=== PATIENT | female | born 1945 | race Caucasian/White ===

== ENCOUNTER 2020-12-19 22:14 | Inpatient (IN) | payer MEDICARE ==
[~2020-12-19] VITALS: Ht 180.3 cm; Wt 90.3 kg
[2020-12-19 23:46] LABS: HEMOGLOBIN 10.3 gm/dl (12.3-15.3); RED BLOOD COUNT 3.19 M/UL (4.00-5.10); WHITE BLOOD COUNT 9.4 K/UL (4.5-11.0)
[2020-12-20 00:10] LABS: BUN/CREATININE RATIO 9 (0-10)
[2020-12-20] MEDS ORDERED: ZOLOFT50 MG PO (04:08)
[2020-12-20] MEDS ORDERED: OMEPRAZOLE20 MG PO (04:09)
[2020-12-20] MEDS ORDERED: LANTUS100 UNIT/1 SQ (04:09)
[2020-12-20] MEDS ORDERED: AMLODIPINE BESY10 MG PO (04:10)
[2020-12-20] MEDS ORDERED: COREG12.5 MG PO (04:10)
[2020-12-20] MEDS ORDERED: HUMALOG100 UNIT/1 SC (04:10)
[2020-12-21 04:57] LABS: HEMOGLOBIN 9.6 gm/dl (12.3-15.3); RED BLOOD COUNT 2.96 M/UL (4.00-5.10); WHITE BLOOD COUNT 11.3 K/UL (4.5-11.0)
[2020-12-22 03:17] LABS: HEMOGLOBIN 9.7 gm/dl (12.3-15.3); RED BLOOD COUNT 3.03 M/UL (4.00-5.10); WHITE BLOOD COUNT 11.7 K/UL (4.5-11.0)
--- NOTE | 2020-12-23 01:40 | NUR ---
Dr. Vail has ordered a soap suds enema for the pt. at 2315 gave pt a soap suds enema. No fecal impaction noted. Two hours later pt still hasn't had a bowel movement. No more vomiting at this time.
[2020-12-23 03:04] LABS: HEMOGLOBIN 9.5 gm/dl (12.3-15.3); RED BLOOD COUNT 2.92 M/UL (4.00-5.10); WHITE BLOOD COUNT 13.7 K/UL (4.5-11.0)
[2020-12-24 03:19] LABS: HEMOGLOBIN 9.9 gm/dl (12.3-15.3); RED BLOOD COUNT 3.1 M/UL (4.00-5.10); WHITE BLOOD COUNT 12.4 K/UL (4.5-11.0)
[2020-12-25 03:51] LABS: HEMOGLOBIN 10.1 gm/dl (12.3-15.3); RED BLOOD COUNT 3.18 M/UL (4.00-5.10)
[2020-12-25 03:53] LABS: WHITE BLOOD COUNT 15.6 K/UL (4.5-11.0)
[2020-12-26 05:56] LABS: HEMOGLOBIN 10.2 gm/dl (12.3-15.3); RED BLOOD COUNT 3.18 M/UL (4.00-5.10); WHITE BLOOD COUNT 15.4 K/UL (4.5-11.0)
--- NOTE | 2020-12-26 16:18 | NUR ---
NG AND RECTAL TUBE REMOVED THIS AM. PATIENT TOLERATED WELL.
[2020-12-27 06:56] LABS: HEMOGLOBIN 10.7 gm/dl (12.3-15.3); RED BLOOD COUNT 3.34 M/UL (4.00-5.10); WHITE BLOOD COUNT 12.6 K/UL (4.5-11.0)
--- NOTE | 2020-12-27 10:58 | NUR ---
ON 12/23/20 AT APPROX 1430 THE PATIENT WAS UP TO THE CHAIR AND REQUESTED TO GO BACK TO BED, HANS GALLEGO WAS IN THE ROOM ASSISTING WITH THE TRANSFER, PATIENT REPORTED FEELING DIZZY I TOOK HER BLOOD PRESSURE IT WAS 99/39 SITTING 68 HEART RATE AND O2 WAS 98% ON 2 LITERS, AFTER STANDING PATIENTS BLOOD PRESSURE WAS 120/46 AND HEART RATE WAS 66 BPM, THE PATIENT THEN REPORTED AGAIN SHE WAS FEELING DIZZY SO I INSTRUCTED HER TO SIT BACK DOWN AND AT THAT TIME THE PATIENT PASSED OUT BUT WAS EASILY WOKE BACK UP. ONCE SITTING BACK DOWN I CALLED A SALES REPRESENT[employer] FOR EXTRA ASSISTANCE, BLOOD PRESSURE AFTERWARDS WAS 108/53 HEART RATE WAS 73 BPM AND O2 WAS 97 % ON 2 LITERS, DR. MART WAS AT BEDSIDE AND PATIENT WAS SAFELY PUT BACK TO BED. PATIENT AT THAT TIME DID NOT REPORT FEELING DIZZY ANYMORE, BLOOD PRESSURE WAS 131/62 AND HEART RATE WAS 76 BPM AND O2 WAS 98% ON 2 LITERS.
[2020-12-28 03:35] LABS: HEMOGLOBIN 9.4 gm/dl (12.3-15.3)
[2020-12-28 03:39] LABS: RED BLOOD COUNT 2.95 M/UL (4.00-5.10)
[2020-12-28] MEDS ORDERED: CARVEDILOL3.125 MG PO (17:14)
[2020-12-28] MEDS ORDERED: STIMULANT LAXA1 EACH PO ×2 (17:14)
[2020-12-28] MEDS ORDERED: ELIQUIS 2.5 MG2.5 MG PO (17:14)
[2020-12-29 04:45] LABS: HEMOGLOBIN 9.8 gm/dl (12.3-15.3); RED BLOOD COUNT 3.02 M/UL (4.00-5.10); WHITE BLOOD COUNT 10.4 K/UL (4.5-11.0)
[2020-12-29] MEDS ORDERED: HYDROCODON-ACE1 EAC4 PO (10:41)
== END 2020-12-29 13:15 | disposition home or self-care (01) | DRG 521 ==
LOC: ER1 22:14 → M/S 12-20 02:21 → CDU 12-20 02:21 → M/S 12-20 03:55
PROVIDERS: Family Medicine; Internal Medicine; Internal Medicine Nephrology; Orthopaedic Surgery; Physician Assistant; ADMIT Internal Medicine
PROC: 0SRS0J9 Replacement of Left Hip Joint, Femoral Surface with Synthetic Substitute, Cemented, Open Approach (ICD-10-PCS; principal; 2020-12-20 11:36)
PROC: 5A1D70Z Performance of Urinary Filtration, Intermittent, Less than 6 Hours Per Day (ICD-10-PCS; 2020-12-22)
PROC: 5A1D70Z Performance of Urinary Filtration, Intermittent, Less than 6 Hours Per Day (ICD-10-PCS; 2020-12-23)
PROC: 5A1D70Z Performance of Urinary Filtration, Intermittent, Less than 6 Hours Per Day (ICD-10-PCS; 2020-12-25)
PROC: 0D9670Z Drainage of Stomach with Drainage Device, Via Natural or Artificial Opening (ICD-10-PCS; 2020-12-26)
PROC: 5A1D70Z Performance of Urinary Filtration, Intermittent, Less than 6 Hours Per Day (ICD-10-PCS; 2020-12-28)
DX: S72.002A Fracture of unspecified part of neck of left femur, initial encounter for closed fracture (principal); N18.6 End stage renal disease; J96.01 Acute respiratory failure with hypoxia; K56.7 Ileus, unspecified; I12.0 Hypertensive chronic kidney disease with stage 5 chronic kidney disease or end stage renal disease; D62 Acute posthemorrhagic anemia; K59.00 Constipation, unspecified; R00.0 Tachycardia, unspecified; Z20.822 Contact with and (suspected) exposure to COVID-19; R11.2 Nausea with vomiting, unspecified; Z96.641 Presence of right artificial hip joint; W10.9XXA Fall (on) (from) unspecified stairs and steps, initial encounter; E11.22 Type 2 diabetes mellitus with diabetic chronic kidney disease; E86.0 Dehydration; Y92.9 Unspecified place or not applicable; Z90.49 Acquired absence of other specified parts of digestive tract; Z91.040 Latex allergy status; Z79.899 Other long term (current) drug therapy; Z79.01 Long term (current) use of anticoagulants; Z79.4 Long term (current) use of insulin; Z90.710 Acquired absence of both cervix and uterus; Z83.3 Family history of diabetes mellitus; Z82.49 Family history of ischemic heart disease and other diseases of the circulatory system
CPT/HCPCS: 36415; 71045; 72170; 73502; 74018; 80048; 80053; 82550; 82553; 82728; 82962; 83540; 83550; 83735; 84100; 84484; 85025; 85027; 85610; 86850; 86900; 86901; 90935; 90937; 93005; 96372; 96374; 96375; 97110; 97110-GP-CQ; 97162; 97167; 97530; 97530-GP-CQ; 97535; 99284; C1776; J0690; J1100; J1644; J2001; J2270; J2405; J2704; J2710; J3010; J7030; U0002